=== PATIENT | female | born 1945 | race Caucasian/White ===

== ENCOUNTER 2019-11-06 13:06 | Outpatient (CLI) | payer BC ==
[2019-11-06 13:38] LABS: CALCIUM 9.5 mg/dL (8.5-10.3)
== END 2019-11-06 13:07 | disposition home or self-care (01) ==
LOC: LAB 13:06
PROVIDERS: ATTEND Internal Medicine Hematology & Oncology
DX: C50.919 Malignant neoplasm of unspecified site of unspecified female breast (principal)
CPT/HCPCS: 36415; 80048